=== PATIENT | male | born 1995 | race Caucasian/White ===

== ENCOUNTER 2017-12-12 02:52 | Emergency (ER) | payer OTHER ==
[2017-12-12 02:59] VITALS: BP 137/96; PULSE 74; BMI 24.4
[2017-12-12 03:02] VITALS: TEMP 98.7
--- NOTE | 2017-12-12 03:14 | PDOC ---
History of Present Illness - General Chief Complaint: Chest Pain Stated Complaint: CHEST PAIN Time Seen by Provider: 12/12/17 03:06 History Source: Patient Exam Limitations: No Limitations - History of Present Illness Initial Comments: 12/12/17 03:14 This is a 22-year-old male who comes in complaining of a discomfort in his left shoulder outside of his arm and chest area. Patient was sitting at his computer for long time working on a project when he said noticed discomfort. Patient said it had a numb numbness quality to it it was not associated with any shortness of breath any nausea or any diaphoresis or any other complaints. Patient said that it is better now but still mild and seems to come and go intermittently. Patient said symptoms began approximately an hour ago. Patient otherwise denies any medical problems denies any hypertension, high cholesterol he is not a smoker and does not do any recreational drugs. Patient denies history of similar symptoms in the past. PAST MEDICAL HISTORY: no significant history PAST SURGICAL HISTORY: no significant history FAMILY HISTORY: no pertinant history SOCIAL HISTORY: Pt lives with family and is employed. MEDICATIONS: reviewed ALLERGIES: As per nursing notes Review of Systems General: No fevers or chills, no weakness, no weight loss HEENT: No change in vision. No sore throat,. No ear pain CardioVascular: + chest pain no shortness of breath Respiratory:No cough, or wheezing. Gastrointestinal: no nausea, vomitting, diarrhea or constipation, No rectal bleeding Genitourinary: No dysuria, hematuria, or frequency Musculoskeletal: No joint or muscle pain or swelling Neurologic: No headache, vertigo, dizziness or loss of consciousness Psychiatric: nor depression Skin: No rashes or easy bruising Endocrine: no increased thirst or abnormal weight change Allergic: no skin or latex allergy All other systems reviewed and normal Exam: General: Well-nourished well-developed individual, no acute distress HEENT: Throat: Normal, tonsils normal, no erythema or exudate Neck: Supple, no meningeal signs, no lymphadenopathy Eyes::Pupils equal reactive and round, extraocular motion intact Chest: Nontender to palpation Cardiac: S1-S2 normal, regular rate and rhythm, no murmurs rubs or gallops Respiratory: Lungs clear to auscultation bilateral Abdomen: Soft, nondistended, normal bowel sounds, nontender to palpation diffusely Extremities: Warm, dry, no cyanosis, clubbing, or edema Skin: No rashes Neuro: Alert and oriented x3, CN II - XII intact, nonfocal exam with normal strength, normal sensation, normal reflexes, normal gait, Psych: Normal mood and affect EKG normal sinus rhythm at a rate of 65, no acute ST-T wave changes normal EKG assessment and plan: This is a 22-year-old male who comes in complaining of some left-sided discomfort in his chest. Patient has no as factors for it to be cardiac. A does seem to have a skeletal muscular component to it and it began after he had been sitting a long time at his computer. Patient given Motrin and will follow-up with his primary care doctor Past History - Past Medical History Allergies/Adverse Reactions: Allergies Allergy/AdvReac Type Severity Reaction Status Date / Time No Known Allergies Allergy Verified 12/12/17 02:54 Home Medications: Ambulatory Orders NK [No Known Home Medication] 12/12/17 COPD: No Other medical history: ANXIETY - Suicide/Smoking/Psychosocial Hx Smoking History: Never smoked Have you smoked in the past 12 months: No Information on smoking cessation initiated: No Hx Alcohol Use: Yes (SOCIAL) Drug/Substance Use Hx: No Substance Use Type: None *Physical Exam - Vital Signs Last Vital Signs Temp Pulse Resp BP Pulse Ox 98.7 F 74 16 137/96 100 12/12/17 03:02 12/12/17 02:57 12/12/17 02:57 12/12/17 02:57 12/12/17 02:57 *DC/Admit/Observation/Transfer Diagnosis at time of Disposition: Atypical chest pain - Discharge Dispostion Disposition: HOME Condition at time of disposition: Stable Decision to Admit order: No - Referrals - Patient Instructions Additional Instructions: Tylenol or Motrin as needed for the pain. Return to the emergency department immediately with ANY new, persistent or worsening symptoms. Continue any medications as previously prescribed by your physician. You should follow up with your primary doctor as soon as possible regarding today's emergency department visit. . Please make sure your doctor reviews the results of your emergency evaluation. Thank you for coming to the Emergency Department today for your care. It was a pleasure to see you today. Please note that your evaluation is INCOMPLETE until you follow-up with your doctor. - Post Discharge Activity
[2017-12-12] MEDS ORDERED: IBUPROFEN 600 MG TABLET (FP) PO ONE ×2 (03:15→03:18)
--- NOTE | 2017-12-13 14:19 | EKG ---
Test Reason : Blood Pressure : / mmHG Vent. Rate : 065 BPM Atrial Rate : 065 BPM P-R Int : 118 ms QRS Dur : 094 ms QT Int : 372 ms P-R-T Axes : 049 063 048 degrees QTc Int : 386 ms NORMAL SINUS RHYTHM NORMAL ECG NO PREVIOUS ECGS AVAILABLE Confirmed by MIRI GUTIERREZ MD ([id number]) on 12/13/2017 2:18:46 PM Referred By: MD MADDEN Confirmed By:MIRI GUTIERREZ MD
== END 2017-12-12 03:22 | disposition home or self-care (01) ==
LOC: FER 02:52
DX: R07.89 Other chest pain (principal)
CPT/HCPCS: 93005; 93010; 99281-25